=== PATIENT | male | born 1985 | race Caucasian/White ===

== ENCOUNTER 2016-11-26 23:50 | Emergency (ER) | payer OTHER ==
[~2016-11-26] VITALS: Ht 175.3 cm; Wt 70.0 kg
[2016-11-26 23:56] VITALS: Ht 175.3 cm; Wt 70.0 kg
--- NOTE | 2016-11-27 00:56 | RADRPT ---
PROCEDURE: XR Ankle. CLINICAL INDICATION: Ankle pain. TECHNIQUE: AP, lateral and oblique views of the left ankle were performed. COMPARISON: There are no similar studies submitted for comparison. FINDINGS: There is a fracture of the distal fibular diaphysis which is comminuted with only minimal displaceme nt. There is partial fusion of the fracture fragments suggesting this is likely subacute or possibl y acute on chronic. There is overlying soft tissue swelling. No definite acute fractures are seen. IMPRESSION: Subacute for acute or chronic fracture of the distal fibular diaphysis. RPTAT: HIKT .Slava Wahl MD, MD Date Time Electronically viewed and signed by .Slava Wahl MD, on 11/27/2016 00:55 .T/
[2016-11-27] MEDS ORDERED: CEPHALEXIN 500 MG CAP PO ONE (01:00)
[2016-11-27] MEDS ORDERED: TRIMETHOPRIM/SULFAMETHOX (DS) TAB PO ONE (01:00)
--- NOTE | 2016-11-27 01:01 | ERD ---
ER Documentation Chief Complaint Date/Time DATE: 11/27/16 TIME: 00:57 Chief Complaint in custody, left ankle pain and spider bite HPI This is a 31-year-old male who presents to the emergency room and custody with [employer] for medical clearance. The patient is complaining of left ankle pain and states that he had a previous ankle fracture however he took his cast off. The patient states he is ambulating on that left ankle and came to the ER today for evaluation because he thinks he has a spider bite over the left ankle. ROS All systems reviewed and are negative except as per history of present illness. Allergies Allergies: Coded Allergies: No Known Allergy (Unverified , 11/27/16) Physical Exam Vitals Vital Signs Date Time Temp Pulse Resp B/P Pulse Ox O2 Delivery O2 Flow Rate FiO2 11/26/16 23:56 98.2 112 16 158/91 100 Physical Exam INITIAL VITAL SIGNS: Reviewed by me GENERAL: The patient is well developed and appropriate for usual state of health in no apparent distress HEENT: Pupils equal, round, and reactive to light. EOMI. There is no scleral icterus. NECK: C-spine is soft and supple, there is no meningismus. There is no cervical lymphadenopathy. LUNGS: Clear to auscultation bilaterally. There are no rales, wheezes or rhonchi. HEART: Regular rate and rhythm, no murmurs, clicks, rubs or gallops. ABDOMEN: Soft, non-tender, non-distended. There are bowel sounds in all four quadrants. No rebound or guarding. EXTREMITIES: Soft tissue swelling noted at the left ankle with small area of cellulitis, no open fracture NEUROLOGICAL: The patient moves all four extremities with 5/5 strength. Cranial nerves II - XII are intact. Normal gait. Alert and oriented SKIN: There is no apparent rash or petechiae. HEME/LYMPHATIC: There is no evidence of excessive bruising or lymphedema. PSYCHIATRIC: The patient does not appear anxious or depressed. Results 24 hrs Current Medications Medications (Trade) Dose Ordered Sig/Ricky Route PRN Reason Start Time Stop Time Status Last Admin Dose Admin Trimethoprim/ Sulfamethoxazole (Bactrim (Ds)) 1 tab ONCE ONCE PO 11/27/16 01:00 11/27/16 01:01 Cephalexin (Keflex) 500 mg ONCE ONCE PO 11/27/16 01:00 11/27/16 01:01 Procedures/MDM X-ray Ankle 3V Interpreted by me: Bones: Subacute distal fibular fracture Joints: No dislocation This 31-year-old male presents to the ER in custody for evaluation of left ankle pain. The patient states he thinks he has a spider bite on his ankle. I evaluated the ankle and was slightly erythematous and did have some soft tissue swelling. The patient had told me he took off a cast for a previous ankle fracture. I obtain an x-ray which does show a subacute distal fibular fracture. The patient was placed in a posterior left lower extremity splint. He was given Bactrim and Keflex in the ER for cellulitis and will be discharged into police custody with a prescription for Bactrim and Keflex Departure Diagnosis: Primary Impression: Fracture of distal end of fibula Additional Impression: Cellulitis Condition: Stable NOREEN HUFFMAN DO Nov 27, 2016 01:01
[2016-11-27] MEDS ORDERED: SULF1TAB31 PO (01:03)
[2016-11-27] MEDS ORDERED: CEPH-443 PO (01:03)
[2016-11-27 01:40] VITALS: BP 144/93; PULSE 85; RESP 18; TEMP 98
== END 2016-11-27 01:45 ==
LOC: E/R 23:50
DX: S82.832A Other fracture of upper and lower end of left fibula, initial encounter for closed fracture (principal); L03.116 Cellulitis of left lower limb; X58.XXXA Exposure to other specified factors, initial encounter; Y92.9 Unspecified place or not applicable
CPT/HCPCS: 29515; 73610; 99284; L3260